=== PATIENT | male | born 2000 | race Two or more races ===

== ENCOUNTER 2022-05-31 18:29 | Emergency (ER) | payer OTHER ==
[~2022-05-31] VITALS: Ht 190.5 cm; Wt 102.1 kg
== END 2022-05-31 22:58 | disposition home or self-care (01) ==
LOC: ER 18:29 → EMR PED 18:33 → ER 18:33 → EMR PED 22:58
DX: J10.1 Influenza due to other identified influenza virus with other respiratory manifestations (principal); Z20.822 Contact with and (suspected) exposure to COVID-19